=== PATIENT | female | born 1965 | race Caucasian/White ===

== ENCOUNTER 2021-06-21 20:50 | Emergency (ER) | payer SELFPAY ==
[~2021-06-21] VITALS: Ht 167.6 cm; Wt 65.8 kg
[2021-06-21 20:52] VITALS: BP 151/82
--- NOTE | 2021-06-21 20:52 | NUR ---
TRENT PANG. TAKEN TO CHAIR Lindsay
--- NOTE | 2021-06-21 22:08 | NUR ---
PT EVALUATED BY DR. STUBBS
[2021-06-21 22:18] VITALS: BP 149/79
--- NOTE | 2021-06-21 22:18 | NUR ---
PT SEEN BY ER MD; NO NURSING INTERVENTIONS NEEDED.
--- NOTE | 2021-06-21 22:18 | NUR ---
Patient discharged with v/s stable. Written and verbal after care instructions given and explained. Patient verbalized understanding. Ambulatory with steady gait. All questions addressed prior to discharge. Advised to follow up with PMD. VSS, A/OX4, AMBULATORY, UNLABORED BREATHING, AND CALM DEMEANOR. PT IN CUSTODY FOR PRE-BOOK. PD SIGNED ON PT BEHALF.
== END 2021-06-21 22:18 ==
LOC: MED 20:50
DX: Z02.89 Encounter for other administrative examinations (principal); V89.2XXA Person injured in unspecified motor-vehicle accident, traffic, initial encounter; Y93.89 Activity, other specified; Y92.89 Other specified places as the place of occurrence of the external cause; Y99.8 Other external cause status
CPT/HCPCS: 99283